=== PATIENT | female | born 1990 | race Caucasian/White ===

== ENCOUNTER 2019-05-18 16:36 | Emergency (ER) | payer OTHER ==
[~2019-05-18] VITALS: Ht 162.6 cm; Wt 77.3 kg
[2019-05-18] MEDS ORDERED: bcp (16:46)
[2019-05-18 21:03] LABS: INR 1.04; PROTHROMBIN TIME 13.3 SECONDS (11.8-14.0)
[2019-05-18 21:04] LABS: PARTIAL THROMBOPLASTIN TIME 26.8 SECONDS (25.0-38.4)
[2019-05-18 21:07] LABS: HCG, SERUM QUALITATIVE NEGATIVE (NEGATIVE)
[2019-05-18 21:15] LABS: NT-PRO BNP 10 PG/ML (<125); TROPONIN I < 0.02 NG/ML (< 0.10)
[2019-05-18] MEDS ORDERED: APIXABAN 5 MG TAB (ELIQUIS) PO ONE ×2 (21:30→22:00)
[2019-05-18] MEDS ORDERED: ELIQ5TAB PO (21:39)
[2019-05-18 21:45] VITALS: BP 137/91
[2019-05-19 11:32] LABS: DRVV SCREEN 41.3 SEC
[2019-05-21 00:07] LABS: CARDIOLIPIN IGA ANTIBODY <9 APL U/mL (0-11); CARDIOLIPIN IGG ANTIBODY <9 GPL U/mL (0-14); CARDIOLIPIN IGM ANTIBODY <9 MPL U/mL (0-12)
[2019-05-22 08:41] LABS: ANTI THROMBIN 3 ANTIGEN IMMUNO 78 % (72-124); ANTI THROMBIN 3 FUNCT ACTIVITY 112 % (75-135); PROTEIN C FUNCTIONAL ACTIVITY 148 % (73-180); PROTEIN S FUNCTIONAL ACTIVITY 104 % (63-140)
== END 2019-05-18 22:00 | disposition home or self-care (01) ==
LOC: M ED 16:36
DX: I82.411 Acute embolism and thrombosis of right femoral vein (principal)

== ENCOUNTER → 2019-05-18 | Outpatient (CLI) | payer OTHER ==
[~2019-05-18] MED LIST: ELIQ5TAB PO; bcp
[2019-05-18 16:14] LABS: BASO # 0.1 10^3/uL (0.0-0.2); BASO % 0.4 % (0.0-1.0); EOS # 0.1 10^3/uL (0.0-0.5); EOS % 0.4 % (0.0-3.0); HEMATOCRIT 48.1 % (36.0-47.0); HEMOGLOBIN 15.7 g/dl (12.0-15.5); LYMPH # 1.8 10^3/uL (1.5-5.0); LYMPH % 13.5 % (24.0-44.0); MEAN CORPUSCULAR HEMOGLOBIN 29.7 pg (27.0-33.0); MEAN CORPUSCULAR HGB CONC 32.6 g/dl (32.0-36.5); MEAN CORPUSCULAR VOLUME 90.9 fl (80.0-96.0); MONO # 0.5 10^3/uL (0.0-0.8); MONO % 3.9 % (0.0-5.0); NEUTROPHILS # 10.6 10^3/uL (1.5-8.5); NEUTROPHILS % 81.3 % (36.0-66.0); PLATELET COUNT, AUTOMATED 250 10^3/uL (150-450); RED BLOOD COUNT 5.29 10^6/uL (4.00-5.40); WHITE BLOOD COUNT 13.1 10^3/uL (4.0-10.0)
--- NOTE | 2019-05-18 17:19 | REP ---
RIGHT LOWER EXTREMITY DUPLEX DOPPLER VENOUS ULTRASOUND: Real-time compression and duplex Doppler interrogation of right lower extremity deep venous system is performed. There is occluding thrombus in the right common femoral vein extending into the right profunda vein. The right superficial femoral and popliteal veins demonstrate compressibility with no intraluminal thrombus. IMPRESSION: Occlusive thrombus right common femoral vein and profunda vein. Electronically Signed by Darinel Garza MD 05/20/2019 10:23 A
== END ==
LOC: M RAD 14:50
PROVIDERS: ATTEND Physician Assistant
DX: I82.411 Acute embolism and thrombosis of right femoral vein (principal)

== ENCOUNTER → 2020-10-27 | Outpatient (CLI) | payer OTHER ==
--- NOTE | 2020-10-28 07:15 | REP ---
INDICATION: NON TOXIC GOITER/2ND US ORDERED BY DIF DOC COMPARISON: None. TECHNIQUE: Garza scale and color evaluation of the thyroid gland using the linear high frequency transducer. FINDINGS: Right thyroid lobe measures 4.3 x 1.6 x 1.5 cm and appears grossly normal. Left thyroid lobe measures 2.9 x 1.3 x 1.4 cm. Isthmus measures 3.4 mm in width. No definite nodule or cystic lesion is appreciated. IMPRESSION: Relatively normal thyroid ultrasound. <Electronically signed by Evaristo Vela > 10/28/20 [id number]
== END ==
LOC: M RAD 12:36
PROVIDERS: ATTEND Nurse Practitioner Family
DX: E04.9 Nontoxic goiter, unspecified (principal)

== ENCOUNTER → 2020-10-27 | Outpatient (CLI) | payer OTHER ==
--- NOTE | 2020-10-27 15:32 | REP ---
INDICATION: RT LEG DVT EVAL COMPARISON: None. TECHNIQUE: Real time compression and duplex Doppler interrogation of the right lower extremity deep venous system is performed. FINDINGS: The right common femoral, superficial femoral and popliteal veins are fully compressible with transducer pressure and demonstrate normal spontaneous and phasic flow, without evidence of deep venous thrombosis. IMPRESSION: No evidence of deep venous thrombosis of the right lower extremity femoral popliteal venous system. <Electronically signed by Darinel Garza > 10/27/20 [id number]
== END ==
LOC: M RAD 12:40
PROVIDERS: ATTEND Internal Medicine Hematology & Oncology
DX: I82.511 Chronic embolism and thrombosis of right femoral vein (principal); D68.52 Prothrombin gene mutation

== ENCOUNTER 2020-12-08 15:45 | Emergency (ER) | payer OTHER ==
[~2020-12-08] VITALS: Ht 162.6 cm; Wt 97.9 kg
[2020-12-08] MEDS ORDERED: ASPI81CH33 PO (15:51)
--- NOTE | 2020-12-08 17:35 | REP ---
INDICATION: pain posterior knee/hx dvt COMPARISON: None. TECHNIQUE: Garza scale and color Doppler evaluation using linear high frequency transducer. FINDINGS: Ultrasound examination of the left lower extremity deep venous structures from the common femoral vein through the calf/ankle to include the peroneal, and tibial veins demonstrates normal compressibility flow and wave patterns in response to respiration and augmentation. There is no evidence for deep venous thrombosis. Contralateral CFV is patent and normal. IMPRESSION: No evidence for deep venous thrombosis. <Electronically signed by Evaristo Vela > 12/08/20 [id number]
[2020-12-08 18:11] VITALS: BP 128/79
== END 2020-12-08 18:20 | disposition home or self-care (01) ==
LOC: M ED 15:45
DX: M25.562 Pain in left knee (principal); Z86.718 Personal history of other venous thrombosis and embolism